=== PATIENT | female | born 1995 | race American Indian/Alaskan Native ===

== ENCOUNTER 2017-06-11 12:20 | Outpatient (CLI) | payer MEDICAID ==
[2017-06-11 12:38] VITALS: BP 123/73
[2017-06-11] MEDS ORDERED: LACTATED RINGERS 500 ML IV NR (13:06)
--- NOTE | 2017-06-11 14:51 | Ultrasound Report ---
ULTRASOUND BIOPHYSICAL PROFILE: History: well being Technique: Transabdominal ultrasound with Doppler interrogation. 2 - breathing movements 2 - movements 2 - posture and tone 2 - Qualitative amniotic fluid volume 8 - TOTAL SCORE OF POSSIBLE 8 Heart Rate (bpm) 140
--- NOTE | 2017-06-11 14:51 | Ultrasound Report ---
ULTRASOUND OB LIMITED History: well being Technique: Transabdominal ultrasound with Doppler interrogation. Gestation: Single Position: Cephalic Amniotic Fluid: Normal ASCENCION = 12.8 cm Heart Rate: 135 BPM
== END 2017-06-11 15:15 | disposition home or self-care (01) ==
LOC: TRG 12:20
PROVIDERS: ATTEND Obstetrics & Gynecology
DX: O47.1 False labor at or after 37 completed weeks of gestation (principal); Z3A.37 37 weeks gestation of pregnancy
CPT/HCPCS: 59025; 76815; 76819

== ENCOUNTER 2017-06-15 20:08 | Inpatient (IN) | payer MEDICAID ==
[2017-06-15] MEDS ORDERED: ZOFRAN IV PRN (22:22)
[2017-06-15] MEDS ORDERED: ePHEDrine SULFATE IV PRN ×2 (22:22→23:39)
[2017-06-15] MEDS ORDERED: BRETHINE SUB-Q PRN (22:22)
[2017-06-15] MEDS ORDERED: MINERAL OIL PO PRN (22:22)
[2017-06-15] MEDS ORDERED: XYLOCAINE 2% INFILTRATI ONE (22:22)
[2017-06-15] MEDS ORDERED: SUBLIMAZE IV PRN (22:25)
--- NOTE | 2017-06-15 22:31 | History and Physical Report ---
History of Present Illness Date of examination: 06/15/17 Chief complaint: labor @ 37+6 weeks History of present illness: EDC Calculations 06/30/17 by third trimester u/s Past History : 1 Term Births: 0 Premature Births: 0 Living Children: 0 Para: 0 Mult. Births: 0 Prev : 0 Prev. attempt? 0 Aborta: 0 Elect. Ab: 0 Spont. Ab: 0 Ectopics: 0 Past Medical History: Negative Past Medical History Past Surgical History: negative Past Medical History Anesthesia Complications: negative Anemia: negative Autoimmune Disorder: negative Bleeding Disorder: negative Blood Transfusions: negative Breast Disease: negative Diabetes: negative Heart Disease: negative Hypertension: negative Hepatitis/Liver Disease: negative Kidney Disease/UTI: negative Neurologic/Epilepsy/Migraines: negative Phlebitis/Varicosities: negative Psychiatric: negative Pulmonary Disease/Asthma: negative Thyroid Disease: negative Hospitalizations: negative Surgery (Non-consultant nurse): negative Abnormal PAP: negative MIKALA Exposure: negative Infertility: negative Uterine Anomaly: negative Uterine Surgery (not C/S): negative Other Gynecologic Problems: negative Family Hx: no known family hx Social Hx: Student no drug/smoking/etoh Infection History Hx of STD: none HIV Risk Eval: no Hepatitis B Risk Eval: low risk Personal hx. of genital herpes: no Partner hx. of genital herpes: no Rash, Viral, or Febrile illness since last LMP? no Varicella/Chicken Pox Status: Immunized Genetic History Congenital Heart Defect: Mom: no Dad: no Rosalia Disease: Mom: no Dad: no Thalassemia Mom: no Dad: no Neural Tube Defect Mom: no Dad: no Down's Syndrome Mom: no Dad: no Billy-Sachs Mom: no Dad: no Sickle Cell Disease/Trait Mom: no Dad: no Hemophilia Mom: no Dad: no Muscular Dystrophy Mom: no Dad: no Cystic Fibrosis Mom: no Dad: no Sarah Chorea Mom: no Dad: no Mental Retardation Mom: no Dad: no Fragile X Mom: no Dad: no Other Genetic/Chromosomal Disorder Mom: no Dad: no Child w/other defect Mom: no Dad: no Enviromental Exposures Xray Exposure: no Medication, drug, or alcohol use since LMP: no Chemical/Other Exposure: no Exposure to Cat Liter: no Hx of Parvovirus (Fifth Disease): no Occupational Exposure to Children: none Active Medications (reviewed today): None Current Allergies (reviewed today): No known allergies Past History Past Medical History: no pertinent history Past Surgical History: no surgical history - Obstetrical History Expected Date of Delivery: 06/30/17 Actual Gestation: 37 Week(s) 6 Day(s) : 1 Para: 0 Hx # Term Pregnancies: 0 Number of Pregnancies: 0 Spontaneous Abortions: 0 Induced : 0 Number of Living Children: 0 Medications and Allergies Allergies Allergy/AdvReac Type Severity Reaction Status Date / Time No Known Allergies Allergy Unverified 06/11/17 13:05 Active Meds: Active Medications Ephedrine Sulfate (Ephedrine Sulfate) 10 mg IV Q2M PRN PRN Reason: Hypotension Fentanyl (Sublimaze) 100 mcg IV Q2H PRN PRN Reason: Labor Pain Parenteral Electrolytes (Normosol-R Ph 7.4) 1,000 mls @ 125 mls/hr IV DIRECT JUAN Oxytocin/Sodium Chloride (Pitocin/Ns 20 Unit/1000ml Drip) 20 units in 1,000 mls @ 125 mls/hr IV DIRECT JUAN Oxytocin/Sodium Chloride (Pitocin/Ns 30 Unit/500ml) 30 units in 500 mls @ 1 mls /hr IV TITR JUAN; Protocol Oxytocin/Sodium Chloride (Pitocin/Ns 30 Unit/500ml) 30 units in 500 mls @ 4 mls /hr IV TITR JUAN; Protocol Lidocaine (Xylocaine 2%) 20 ml INFILTRATI ONCE ONE Stop: 06/15/17 22:23 Mineral Oil (Mineral Oil) 30 ml PO QHS PRN PRN Reason: Constipation Ondansetron HCl (Zofran) 4 mg IV Q8H PRN PRN Reason: Nausea And Vomiting Terbutaline Sulfate (Brethine) 0.25 mg SUB-Q ONCE PRN PRN Reason: Hyperstimulation/Hypertonicity Review of Systems All systems: negative - Vital Signs Vital signs: Vital Signs Pulse BP Pulse Ox 86 121/69 96 06/15/17 20:28 06/15/17 20:28 06/15/17 20:28 Temp Pulse Resp BP Pulse Ox 98.1 F 106 H 18 121/69 93 06/15/17 20:45 06/15/17 20:58 06/15/17 20:45 06/15/17 20:28 06/15/17 20:58 - Physical Exam Breasts: Positive: normal Cardiovascular: Regular rate Lungs: Positive: Clear to auscultation, Normal air movement Abdomen: Positive: normal appearance, soft, normal bowel sounds Genitourinary (Female): Positive: normal external genitalia, normal perenium Vulva: both: normal Vagina: Positive: normal moisture Uterus: Positive: normal size, normal contour Anus/Rectum: Positive: normal perianal skin Extremities: Positive: normal Deep Tendon Reflex Grade: Normal +2 - Obstetrical FHR: category 2 Uterine Contraction Monitor Mode: External Cervical Dilatation: 4.5 (vertex) Cervical Effacement Percentage: 80 station: -1 Uterine Contraction Frequency (min): 3-5 Uterine Contraction Duration: 60 Uterine Contraction Pattern: Regular Uterine Tone Measurement Phase: Contraction Uterine Contraction Intensity: Moderate Results All other labs normal. Patient: MATTHIAS CRUZ ID: [id number] Note: All result statuses are Final unless otherwise noted. Patient Note: PATIENT WAS FASTING Tests: (1) Profile I ([id number]) Order Note: Clinical Information: SRC:UR HBsAg Screen Negative Negative *1 RPR Non Reactive Non Reactive *2 Rubella Antibodies, IgG 1.42 index Immune >0.99 *3 Non-immune <0.90 Equivocal 0.90 - 0.99 Immune >0.99 ABO Grouping B *4 Rh Factor Positive *5 Please note: Prior records for this patient's ABO / Rh type are not available for additional verification. Antibody Screen Negative Negative *6 WBC 7.7 x10E3/uL 3.4-10.8 *7 RBC [L] 3.76 x10E6/uL 3.77-5.28 *8 Hemoglobin [L] 10.9 g/dL 11.1-15.9 *9 Hematocrit 34.1 % 34.0-46.6 *10 MCV 91 fL 79-97 *11 MCH 29.0 pg 26.6-33.0 *12 MCHC 32.0 g/dL 31.5-35.7 *13 RDW [H] 17.1 % 12.3-15.4 *14 Platelets 188 x10E3/uL 150-379 *15 Neutrophils 75 % Not Estab. *16 Lymphs 18 % Not Estab. *17 Monocytes 7 % Not Estab. *18 Eos 0 % Not Estab. *19 Basos 0 % Not Estab. *20 ! Immature Cells <No Reported Value> *21 Neutrophils (Absolute) 5.7 x10E3/uL 1.4-7.0 *22 Lymphs (Absolute) 1.4 x10E3/uL 0.7-3.1 *23 Monocytes(Absolute) 0.6 x10E3/uL 0.1-0.9 *24 Eos (Absolute) 0.0 x10E3/uL 0.0-0.4 *25 Baso (Absolute) 0.0 x10E3/uL 0.0-0.2 *26 ! Immature Granulocytes 0 % Not Estab. *27 ! Immature Grans (Abs) 0.0 x10E3/uL 0.0-0.1 *28 ! NRBC <No Reported Value> *29 Hematology Comments: <No Reported Value> *30 Tests: (2) SMN1 Copy Number Analysis ([id number]) ! Genetic Counselor: Not applicable *31 ! Client Specimen ID: Not applicable *32 ! Specimen Type: SPRCS *33 Peripheral Blood ! Specimen(s) Received: [facility] *34 1 - Yellow (ACD) 10 ml round bottom tube(s) ! Clinical Data: SPR *35 Not Provided ! Ethnicity: [facility] *36 Not Provided ! SMA Results: [facility] *37 SMN1 copy number: 2 (Reduced Carrier Risk) ! SMA Interpretation: Note *38 This individual has an SMN1 copy number of two. This result reduces but does not eliminate the risk to be a carrier of SMA. Information regarding clinical indication may provide a more detailed interpretation. ! Comments: Note *39 Spinal muscular atrophy (SMA) is an autosomal recessive disease of variable age of onset and severity caused by mutations (most often deletions or gene conversions) in the survival motor neuron (SMN1) gene. Molecular testing assesses the number of copies of the SMN1 gene. Individuals with one copy of the SMN1 gene are predicted to be carriers of SMA. Individuals with two or more copies have a reduced risk to be carriers. (Affected individuals have 0 copies of the SMN1 gene.) This copy number analysis cannot detect individuals who are carriers of SMA as a result of either 2 (or very rarely 3) copies of the SMN1 gene on one chromosome and the absence of the SMN1 gene on the other chromosome or small intragenic mutations within the SMN1 gene. This analysis also will not detect germline mosaicism or mutations in genes other than SMN1. Additionally, de jose elias mutations have been reported in approximately 2% of SMA patients. ! Carrier Detection Rate: Note *40 Carrier Frequency and Risk Reductions for Individuals with No Family History of SMA Reduced Reduced Carrier Carrier Prior Risk for Risk for Detection Carrier 2 copy 3 copy Ethnicity rate(1) Risk(1) result result 94.8% 1:47 1:834 1:5,600 Ashkenazi Amish 90.5% 1:67 1:611 1:5,400 93.3% 1:59 1:806 1:5,600 90.0% 1:68 1:579 1:5,400 70.5% 1:72 1:130 1:4,200 Latvian 90.2% 1:52 1:443 1:5,400 ! Method/Limitations: Note *41 METHOD/LIMITATIONS: Specimen DNA is isolated and amplified by real-time polymerase chain reaction (PCR) for exon 7 of the SMN1 gene and the internal standard reference genes. A mathematical algorithm is used to calculate and report SMN1 copy numbers of 0, 1, 2 and 3. Based upon this analysis, an upper limit of 3 represents the highest degree of accuracy in reporting SMN1 copy number with statistical confidence. Sequencing of the primer and probe binding sites is performed on all samples and samples with one copy of SMN1 by real-time PCR to rule out the presence of sequence variants which could interfere with analysis and interpretation. False positive or negative results may occur for reasons that include genetic variants, blood transfusions, bone marrow transplantation, erroneous representation of family relationships or contamination of a sample with maternal cells. ! References: Note *42 REFERENCES: 1. Cristal BONILLA, Jude N, Ricks H, et al. Jewell-ethnic carrier screening and diagnosis for spinal muscular atrophy: clinical laboratory analysis of >72,400 specimens. Eur J Hum Lilia 2012; 20:27-32. 2. Prior BOURGEOIS, et al. Technical standards and guidelines for spinal muscular atrophy testing. Lilia Med 2011; 13(7): 686-694. ! Disclaimer: Note *43 The test was developed and its performance characteristics have been determined by [facility]. The laboratory is regulated under the Clinical Laboratory Improvement Amendments of 1988 (CLIA) as qualified to perform high complexity clinical testing. This test must be used in conjunction with clinical assessment, when available. [facility] is a business unit of [facility], a wholly-owned subsidiary of [employer]. ! Electronically Signed by: [facility] *44 Nancy Wang, Ph.D., [facility], Tests: (3) HB Solu + Rflx Frac ([id number]) Hemoglobin (Hgb) Solubility Negative Negative *45 Tests: (4) Panel 751980 ([id number]) HIV Screen 4th Generation wRfx Non Reactive Non Reactive *46 Tests: (5) Gest. Diabetes 1-Hr Screen (507002) ! Gestational Diabetes Screen 88 mg/dL 65-139 *47 According to ADA, a glucose threshold of >139 mg/dL after 50-gram load identifies approximately 80% of women with gestational diabetes mellitus, while the sensitivity is further increased to approximately 90% by a threshold of >129 mg/dL. Tests: (6) HCV Ab w/Rflx to Verification (384644) ! HCV Ab <0.1 s/co ratio 0.0-0.9 *48 Chlamydia trachomatis, LISA Negative Negative *3 Neisseria gonorrhoeae, LISA Negative Negative *4 Tests: (3) RPR, Rfx Qn RPR/Confirm TP (708121) RPR Non Reactive Non Reactive *5 Tests: (4) Panel 186628 (056283) HIV Screen 4th Generation wRfx Non Reactive Non Reactive *6 Tests: (5) Strep Gp B LISA (496378) ! Strep Gp B LISA Negative Negative *7 Assessment and Plan 21 y/o @ 37+6 weeks presented to labor and del in labor, changing from 3 to 4.5 cms after walking x 2 hours. GBS negative. complicated by late care starting @ 31 weeks with EDC assigned by third trimester u/s. Admission orders in EMR. Anticipate . - Patient Problems (1) Active labor at term Current Visit: Yes Status: Acute
[2017-06-15 22:52] LABS: Hematocrit 36.1 % (30.3-42.9); Hemoglobin 11.7 gm/dl (10.1-14.3); Mean Corpuscular HGB Conc 33 % (30-34); Mean Corpuscular Hemoglobin 29 pg (28-32); Mean Corpuscular Volume 89 fl (79-97); Platelet Count 194 K/mm3 (140-440); Red Blood Count 4.06 M/mm3 (3.65-5.03); Red Cell Distribution Width 16.6 % (13.2-15.2)
[2017-06-15] MEDS: NORMOSOL-R PH 7.4 1,000 ML IV SCH ×2 (22:56→23:47)
[2017-06-15] MEDS ORDERED: PITOCin/NS 20 UNIT/1000ML DRIP 20 UNITS/1,000 ML BAG IV SCH (23:00)
[2017-06-15] MEDS ORDERED: PITOCin/NS 30 UNIT/500ML 30 UNITS/500 ML BAG IV SCH ×2 (23:00)
[2017-06-15] MEDS ORDERED: NARCAN 2 MG/2 ML IV PRN (23:39)
--- NOTE | 2017-06-15 23:39 | Anesthesia Consultation ---
Anesthesia Consult and Med Hx - Airway Anesthetic Teeth Evaluation: Good ROM Head & Neck: Adequate Mental/Hyoid Distance: Adequate Mallampati Class: Class II Intubation Access Assessment: Good - Pulmonary Exam CTA: Yes - Cardiac Exam Cardiac Exam: RRR - Pre-Operative Health Status ASA Pre-Surgery Classification: ASA2 Proposed Anesthetic Plan: Epidural, Spinal - Pulmonary Hx Asthma: No COPD: No Hx Pneumonia: No - Cardiovascular System Hx Hypertension: No - Central Nervous System Hx Seizures: No Hx Psychiatric Problems: No - Endocrine Hx Renal Disease: No Hx End Stage Renal Disease: No Hx Hypothyroidism: No Hx Hyperthyroidism: No - Hematic Hx Anemia: Yes Hx Sickle Cell Disease: No - Other Systems Hx Alcohol Use: No
[2017-06-15] MEDS ORDERED: fentaNYL-BUPIV 2 MCG/ML-0.125% 200 MCG/100 ML BAG EPIDURAL SCH (23:45)
--- NOTE | 2017-06-16 01:58 | Procedure Note ---
OB Delivery Note - Delivery Date of Delivery: 06/16/17 ( female) Principal Consultant: CAYETANO CARRENO Estimated blood loss: 200cc - Vaginal Delivery presentation: vertex Delivery position: OA Intrapartum events: none Delivery induction: none Delivery augmentation: rupture of membranes, pitocin Delivery monitor: external FHT, external uterine Route of delivery: Delivery placenta: spontaneous Delivery cord: 3 umbilical vessels Episiotomy: none Delivery laceration: 2nd degree Delivery repair: vicryl Anesthesia: epidural Delivery comments: female infant del LORNE and made a large arc to JENN over intact perineum. Infant del and placed skin to skin, 3 vessel cord clamped and cut. Placenta delivered intact and complete. 2nd degree lac repaired with 3-o vicryl in the usual fashion. EBL 200. Apgars 8/9, wt 7#14oz. - A at 1 minute: 8 at 5 minutes: 9 Infant Gender: Female (7#14)
[2017-06-16] MEDS ORDERED: PITOCin/NS 20 UNIT/1000ML DRIP 20 UNITS/1,000 ML BAG IV SCH (03:58)
[2017-06-16] MEDS ORDERED: TUCKS PAD TP PRN (03:58)
[2017-06-16] MEDS ORDERED: BENADRYL PO PRN (03:58)
[2017-06-16] MEDS ORDERED: LANSINOH TP PRN (03:58)
[2017-06-16] MEDS ORDERED: PHENERGAN PO PRN (03:58)
[2017-06-16] MEDS ORDERED: DULCOLAX PR PRN (03:58)
[2017-06-16] MEDS ORDERED: DERMOPLAST TP PRN (03:58)
[2017-06-16] MEDS ORDERED: TYLENOL PO PRN (03:58)
[2017-06-16] MEDS ORDERED: MILK OF MAGNESIA PO PRN (03:58)
[2017-06-16] MEDS ORDERED: SODIUM CHLORIDE FLUSH SYRINGE 10 ML IV PRN (03:58)
[2017-06-16] MEDS: MOTRIN PO SCH ×3 (04:40→17:11)
[2017-06-16] MEDS: PRENATAL VITAMIN PO SCH (11:27)
[2017-06-16] MEDS: COLACE PO SCH (11:28)
[2017-06-16 14:40] LABS: Hematocrit 30.4 % (30.3-42.9); Hemoglobin 9.9 gm/dl (10.1-14.3)
--- NOTE | 2017-06-17 05:57 | Discharge Summary ---
Providers - Providers Date of Admission: 06/15/17 22:31 Date of discharge: 06/17/17 (pt agrees with d/c ) Attending physician: ALEXANDREA GRESHAM 06/16/17 03:58 Consult to Cooler Supervisor [CONS] Routine Reason For Exam: assistance with , SNS Primary care physician: ALEXANDREA GRESHAM Hospitalization Reason for admission: active labor Delivery: Episiotomy: none Laceration: 2nd degree Incision: normal, dry, intact Other procedures: none complications: none Discharge diagnosis: IUP at term delivered [place] baby: female Hospital course: uncomplicated vaginal delivery Pt A&O X 3 No c/o voiced Desires DEPO for BC. VSS FF below umb Lochia small perineum slight swelling intact H&H 12/29 drop r/t blood loss from delivery Doing well s/p vag delivery P: d/c today with instructions DEPO ordered prior to d/c as per pt request RX iron, colace, and motrin provided. Condition at discharge: Good Disposition: DC-01 TO HOME OR SELFCARE - Discharge Diagnoses (1) (normal spontaneous vaginal delivery) Status: Acute Comment: RTO 4 weeks PP care Plan - Discharge Medications Prescriptions: Docusate Sodium [Colace] 100 mg PO BID PRN #60 capsule PRN Reason: Constipation Ferrous Sulfate [Feosol 325 MG tab] 325 mg PO BID #60 tablet Ibuprofen [Motrin 800 MG tab] 800 mg PO TID PRN #30 tablet PRN Reason: Pain - Provider Discharge Summary Activity: routine, no sex for 6 weeks, no heavy lifting 4 weeks, no strenuous exercise Diet: routine Instructions: routine Additional instructions: [] Smoking cessation referral if applicable(refer to patient education folder for contact #) [] Refer to [facility] Booklet Call your doctor immediately for: * Fever > 100.5 * Heavy vaginal bleeding ( >1 pad per hour) * Severe persistent headache * Shortness of breath * Reddened, hot, painful area to leg or breast * Drainage or odor from incision. * Keep incision clean and dry at all times and follow doctor's instructions regarding bathing/showering - Follow up plan Follow up: ALEXANDREA GRESHAM MD [Primary Care Provider] - 6 Weeks (Congratulations! Please call [phone] to schedule your visit in 4-6 weeks. Take medications as prescribed. Call with concerns.)
[2017-06-17] MEDS ORDERED: BOOSTRIX IM ONE (06:00)
[2017-06-17] MEDS ORDERED: DEPO-PROVERA (CONTRACEPTION) IM ONE ×2 (06:09→14:03)
[2017-06-17] MEDS: MOTRIN PO SCH ×3 (06:54→14:05)
[2017-06-17 13:05] VITALS: BP 110/71
[2017-06-17] MEDS: COLACE PO SCH (14:05)
[2017-06-17] MEDS: PRENATAL VITAMIN PO SCH (14:05)
== END 2017-06-17 14:15 | disposition home or self-care (01) | DRG 775 ==
LOC: TRG 20:08 → LD 22:31 → OB 06-16 03:54
PROVIDERS: ADMIT Obstetrics & Gynecology; ATTEND Obstetrics & Gynecology
PROC: 10E0XZZ Delivery of Products of Conception, External Approach (ICD-10-PCS; principal; 2017-06-15)
PROC: 0KQM0ZZ Repair Perineum Muscle, Open Approach (ICD-10-PCS; 2017-06-15)
PROC: 3E0234Z Introduction of Serum, Toxoid and Vaccine into Muscle, Percutaneous Approach (ICD-10-PCS; 2017-06-15)
PROC: 3E0R3BZ Introduction of Anesthetic Agent into Spinal Canal, Percutaneous Approach (ICD-10-PCS; 2017-06-15)
PROC: 00HU33Z Insertion of Infusion Device into Spinal Canal, Percutaneous Approach (ICD-10-PCS; 2017-06-15)
DX: O99.02 Anemia complicating childbirth (principal); O70.1 Second degree perineal laceration during delivery; D64.9 Anemia, unspecified; Z3A.37 37 weeks gestation of pregnancy; Z37.0 Single live birth; Z23 Encounter for immunization
CPT/HCPCS: 36415; 85014; 85018; 85027; 86592; 86850; 86900; 86901; 90471; 90715; J1050; J2590; J3010